=== PATIENT | female | born 1930 | race Caucasian/White ===

== ENCOUNTER 2017-08-31 10:43 | Outpatient (CLI) | payer MEDICARE, BC ==
[~2017-08-31 10:43] MED LIST: ACET-2119 PO; AMIO200T57 PO; APIX2.5T PO; CEPH250T PO; COR3.125T PO; FERR324T PO; FEXO-236 PO; GABA-532 PO; LEVO50TA PO; MULT-955 PO; OMEG300C3 PO; OSC500T PO; PRAV40TA PO; [UNRECOGNIZED DRUG - OTHER] PO
== END 2017-08-31 23:59 | disposition home or self-care (01) ==
LOC: VAS 10:43
PROVIDERS: ATTEND Internal Medicine Cardiovascular Disease
DX: I82.B12 Acute embolism and thrombosis of left subclavian vein (principal); I10 Essential (primary) hypertension; Z95.0 Presence of cardiac pacemaker
CPT/HCPCS: 93971

== ENCOUNTER 2020-03-27 20:53 | Inpatient (IN) | payer MEDICARE, BC ==
[~2020-03-27] VITALS: Ht 160 cm; Wt 47.7 kg
[~2020-03-27 20:53] MED LIST changes: -ACET-2119 PO; -AMIO200T57 PO; +AMIO200T61 PO; +AMO250C PO; -CEPH250T PO; -COR3.125T PO; +FERR236T3 PO; -FERR324T PO; -FEXO-236 PO; -GABA-532 PO; +GABA300C PO; -MULT-955 PO; -OMEG300C3 PO; -OSC500T PO; -PRAV40TA PO; +PRAV40TA3 PO; -[UNRECOGNIZED DRUG - OTHER] PO
[2020-03-27 21:25] LABS: BASOPHILS # (AUTO) 0.1 X10'3 (0-0.2); BASOPHILS % (AUTO) 0.8 % (0-1); EOSINOPHILS % (AUTO) 0.6 % (0-6); HEMATOCRIT 27.3 % (35.0-45.0); HEMOGLOBIN 9.4 g/dl (12.0-16.0); LYMPHOCYTES # (AUTO) 0.5 X10'3 (1.1-4.8); LYMPHOCYTES % (AUTO) 7.9 % (21-51); MEAN CORPUSCULAR HEMOGLOBIN 33.2 PG (27.0-31.0); MEAN CORPUSCULAR HGB CONC 34.4 g/dL (33.0-36.5); MEAN CORPUSCULAR VOLUME 96.7 FL (78-98); MEAN PLATELET VOLUME 7.7 FL (7.4-10.4); MONOCYTES # (AUTO) 1.1 X10'3 (0-0.9); MONOCYTES % (AUTO) 16.8 % (2-12); NEUTROPHILS # (AUTO) 4.7 X10'3 (1.8-7.7); NEUTROPHILS % (AUTO) 73.9 % (42-75); PLATELET COUNT 238 X10'3 (140-440); RED BLOOD COUNT 2.82 X10'6 (4.20-5.60); RED CELL DISTRIBUTION WIDTH 16.6 % (11.5-14.5); WHITE BLOOD COUNT 6.4 X10'3 (4.5-11.0)
[2020-03-27 21:31] LABS: CLARITY,URINE SLIGHTLY CLOUDY (Clear); COLOR,URINE YELLOW (Yellow); GLUCOSE, URINE NEGATIVE (Neg); KETONES,URINE NEGATIVE (Neg); LEUKOCYTE ESTERASE ,URINE TRACE (Neg); NITRITES, URINE NEGATIVE (Neg); OCCULT BLOOD,URINE NEGATIVE (Neg); PH,URINE 7.5 (4.8-8.0); PROTEIN,URINE TRACE mg/dl (Neg)
[2020-03-27 21:32] LABS: UA COLLECTION TYPE CLN CATCH MIDSTREAM
[2020-03-27] MEDS ORDERED: DOCU-148 PO (21:34)
[2020-03-27] MEDS ORDERED: POTA10TA10 PO (21:34)
[2020-03-27] MEDS ORDERED: PANT-47 PO (21:34)
[2020-03-27] MEDS ORDERED: OMEG1CAP13 PO (21:34)
[2020-03-27] MEDS ORDERED: MAGN200T8 PO (21:34)
[2020-03-27] MEDS ORDERED: METO5TAB85 PO (21:34)
[2020-03-27] MEDS ORDERED: ROPI0.252 PO (21:34)
[2020-03-27] MEDS ORDERED: AMLO5TAB4 PO (21:34)
[2020-03-27] MEDS ORDERED: LISI-600 PO (21:34)
[2020-03-27] MEDS ORDERED: ACET-1008 PO (21:34)
[2020-03-27] MEDS ORDERED: FERR324T4 PO (21:34)
[2020-03-27] MEDS ORDERED: PRAV80TA3 PO (21:34)
[2020-03-27] MEDS ORDERED: HYDR-4383 PO (21:34)
[2020-03-27] MEDS ORDERED: SENN-263 PO (21:34)
[2020-03-27] MEDS ORDERED: DEMECLOCYCLINE PO (21:35)
[2020-03-27 21:36] LABS: BACTERIA,URINE 3+ /HPF (Neg); RBC,URINE NONE SEEN /HPF (0-2); SQUAMOUS EPITHELIAL CELL,UR FEW /LPF (FEW); WBC,URINE 0-4 /HPF (0-4)
[2020-03-27 21:41] LABS: ALANINE AMINOTRANSFERASE 96 U/L (12-78); ALBUMIN 2.8 G/DL (3.4-5.0); ALBUMIN/GLOBULIN RATIO 0.9 (1.1-1.5); ALKALINE PHOSPHATASE 105 IU/L (46-116); ANION GAP 4 (8-16); ASPARTATE AMINO TRANSFERASE 152 U/L (10-37); BILIRUBIN,TOTAL 1.1 MG/DL (0.1-1.0); BLOOD UREA NITROGEN 19 MG/DL (7-18); BUN/CREATININE RATIO 31.7 (6.6-38.0); CALCIUM 7.6 MG/DL (8.5-10.1); CHLORIDE 88 MMOL/L (99-107); GLUCOSE 86 MG/DL (70-104); LIPASE 86 U/L (73-393); SODIUM 121 MMOL/L (135-145); TOTAL CARBON DIOXIDE 28.7 MMOL/L (24-32); TOTAL PROTEIN 5.8 G/DL (6.4-8.2); TROPONIN I 0.05 NG/ML (0.0-0.05); eGFR > 90 ML/MIN
[2020-03-27 21:42] LABS: POTASSIUM 2.9 MMOL/L (3.5-5.1)
[2020-03-27] MEDS ORDERED: potassium Cl 10 mEq/100mL bag IV ONE ×2 (21:45→22:35)
[2020-03-27] MEDS ORDERED: ondansetron/PF 4mg/2ml inj IV ONE (22:35)
[2020-03-27] MEDS ORDERED: normal saline 1000ML IV soln IVB ONE (22:35)
[2020-03-27] MEDS ORDERED: potassium CL 10mEq/100ml bag 100 ML IV PRN ×2 (23:15)
[2020-03-27] MEDS ORDERED: magnesium hydroxide 30ml (MOM) UD suspension PO PRN (23:15)
[2020-03-27] MEDS ORDERED: acetaminophen 325mg tablet PO PRN ×2 (23:15→23:20)
[2020-03-27] MEDS ORDERED: potassium Cl 20 mEq SR tablet PO PRN (23:15)
[2020-03-27] MEDS ORDERED: mag hydrox/Alum hydrox/simeth 30ml oral suspension PO PRN (23:15)
[2020-03-27] MEDS ORDERED: ondansetron/PF 4mg/2ml inj IV PRN (23:15)
[2020-03-27] MEDS: potassium Cl 20mEq in NS 1,000 ML IV SCH (23:45)
[2020-03-28 01:10] VITALS: BP 144/63
--- NOTE | 2020-03-28 01:10 | NUR ---
PATIENT ADMITTED TO ROOM 353 FROM ER FOR HYPONATREMIA AND HYPOKALEMIA. PLACED COMFORTABLE IN BED. VITAL SIGNS TAKEN AND RECORDED.
[2020-03-28 06:19] LABS: ALANINE AMINOTRANSFERASE 106 U/L (12-78); ALBUMIN 2.5 G/DL (3.4-5.0); ALBUMIN/GLOBULIN RATIO 0.9 (1.1-1.5); ALKALINE PHOSPHATASE 92 IU/L (46-116); ANION GAP 2 (8-16); ASPARTATE AMINO TRANSFERASE 167 U/L (10-37); BILIRUBIN,TOTAL 0.9 MG/DL (0.1-1.0); BLOOD UREA NITROGEN 22 MG/DL (7-18); CALCIUM 7.5 MG/DL (8.5-10.1); CHLORIDE 92 MMOL/L (99-107); CREATININE 0.55 MG/DL (0.40-0.90); GLUCOSE 84 MG/DL (70-104); POTASSIUM 3.2 MMOL/L (3.5-5.1); SODIUM 125 MMOL/L (135-145); TOTAL CARBON DIOXIDE 30.6 MMOL/L (24-32); TOTAL PROTEIN 5.3 G/DL (6.4-8.2); eGFR > 90 ML/MIN
[2020-03-28 06:20] LABS: BASOPHILS % (AUTO) 0.6 % (0-1); EOSINOPHILS # (AUTO) 0.1 X10'3 (0-0.9); EOSINOPHILS % (AUTO) 0.9 % (0-6); HEMATOCRIT 23.8 % (35.0-45.0); HEMOGLOBIN 8.3 g/dl (12.0-16.0); LYMPHOCYTES # (AUTO) 0.5 X10'3 (1.1-4.8); LYMPHOCYTES % (AUTO) 8.7 % (21-51); MEAN CORPUSCULAR HEMOGLOBIN 33.7 PG (27.0-31.0); MEAN CORPUSCULAR VOLUME 96.3 FL (78-98); MEAN PLATELET VOLUME 7.9 FL (7.4-10.4); MONOCYTES # (AUTO) 0.9 X10'3 (0-0.9); MONOCYTES % (AUTO) 16.1 % (2-12); NEUTROPHILS # (AUTO) 4.2 X10'3 (1.8-7.7); NEUTROPHILS % (AUTO) 73.7 % (42-75); PLATELET COUNT 221 X10'3 (140-440); RED BLOOD COUNT 2.47 X10'6 (4.20-5.60); RED CELL DISTRIBUTION WIDTH 16.3 % (11.5-14.5); WHITE BLOOD COUNT 5.8 X10'3 (4.5-11.0)
--- NOTE | 2020-03-28 06:30 | NUR ---
Patient in room [facility]. I have received report from Humera RUSSELL and had the opportunity to ask questions and assume patient care.
--- NOTE | 2020-03-28 06:33 | NUR ---
Problems reprioritized. Patient report given, questions answered & plan of care reviewed with GOLDY RUSSELL.
--- NOTE | 2020-03-28 06:47 | NUR ---
NEEL Bailey reported patient O2 sat was 84% on room air. Patient is confused but admitted she is short of breath. Oxygen at 2lpm/nc was administered to her, O2 sat 93-94% on 2 lpm/nc.
[2020-03-28 07:00] VITALS: BP 125/59
[2020-03-28 07:12] LABS: TOTAL CELLS COUNTED 100
[2020-03-28 07:13] LABS: ANISOCYTOSIS 1+; BURR CELLS 1+; ELLIPTOCYTES 1+; PLATELET ESTIMATE NORMAL
[2020-03-28] MEDS: K and/or MAG REPLACEMENT MC SCH ×2 (08:00→20:00)
[2020-03-28] MEDS: ROPINIRole 1mg tablet PO SCH ×3 (09:07→20:22)
[2020-03-28] MEDS: apixaban 2.5mg tablet PO SCH ×2 (09:07→20:23)
[2020-03-28] MEDS: levoTHYROXINE 25mcg tablet PO SCH (09:07)
[2020-03-28] MEDS: lisinopril 2.5mg tablet PO SCH (09:08)
[2020-03-28] MEDS: pantoprazole 40mg Tablet.DR PO SCH (09:08)
[2020-03-28] MEDS: potassium Cl 20 mEq SR tablet PO PRN ×2 (09:14→20:22)
[2020-03-28 11:00] VITALS: BP 155/77
--- NOTE | 2020-03-28 14:03 | NUR ---
Patient's peripheral IV on the left AC was found infiltrated, attempted to put a new IV with no success. Michelle RUSSELL paged PICC line nurse for help
--- NOTE | 2020-03-28 15:09 | NUR ---
Noted that pt with a low BMI for geriatric age however current documented weight isn't scaled. Pt with no reliable wt hx however noted that pt documented as 60" in previous visits, current ht documented as 63" likely not correct. Pt documented as A/O x 1 and confused. Pt on a regular diet, pending documentation of PO intake. No edema or wounds. Will continue to follow closely and monitor need for nutrition intervention. Addendum: 03/28/20 at [address] Amended: Links added.
[2020-03-28] MEDS: CefTRIAXone/D5W-Rocephin 1gm 50 ML IV SCH (15:54)
--- NOTE | 2020-03-28 17:59 | NUR ---
PAGER ID: [phone] MESSAGE: Surgical Flr Shaheen RN ext [phone]. RE: Ilana Goodrich. Just FYI patient had low saturation early this am 84%, I gave her O2 at 2lpm//nc and was better after. Her CXR shows pulmonary vascular congestion.
--- NOTE | 2020-03-28 18:54 | NUR ---
Problems reprioritized. Patient report given, questions answered & plan of care reviewed with Humera RUSSELL.
--- NOTE | 2020-03-28 18:55 | NUR ---
Patient in room [facility]. I have received report from GOLDY RUSSELL and had the opportunity to ask questions and assume patient care.
[2020-03-28 20:00] VITALS: BP 146/70
[2020-03-28] MEDS: potassium Cl 20mEq in NS 1,000 ML IV SCH (20:21)
[2020-03-28] MEDS: amLODIPine 5mg tablet PO SCH (20:22)
[2020-03-29] VITALS: BP 138/71
[2020-03-29] MEDS: HYDROcodone/acetaminophen 5mg/325mg tablet PO PRN ×3 (00:11→20:09)
[2020-03-29 05:25] LABS: BASOPHILS % (AUTO) 0.6 % (0-1); EOSINOPHILS # (AUTO) 0.1 X10'3 (0-0.9); EOSINOPHILS % (AUTO) 0.8 % (0-6); HEMOGLOBIN 7.6 g/dl (12.0-16.0); LYMPHOCYTES # (AUTO) 0.7 X10'3 (1.1-4.8); LYMPHOCYTES % (AUTO) 10.7 % (21-51); MEAN CORPUSCULAR HEMOGLOBIN 34.2 PG (27.0-31.0); MEAN CORPUSCULAR HGB CONC 35.2 g/dL (33.0-36.5); MEAN CORPUSCULAR VOLUME 96.9 FL (78-98); MEAN PLATELET VOLUME 7.9 FL (7.4-10.4); MONOCYTES % (AUTO) 15.3 % (2-12); NEUTROPHILS # (AUTO) 4.7 X10'3 (1.8-7.7); NEUTROPHILS % (AUTO) 72.6 % (42-75); PLATELET COUNT 214 X10'3 (140-440); RED BLOOD COUNT 2.24 X10'6 (4.20-5.60); RED CELL DISTRIBUTION WIDTH 16.8 % (11.5-14.5); WHITE BLOOD COUNT 6.5 X10'3 (4.5-11.0)
[2020-03-29 05:33] LABS: ALANINE AMINOTRANSFERASE 127 U/L (12-78); ALBUMIN 2.7 G/DL (3.4-5.0); ALKALINE PHOSPHATASE 89 IU/L (46-116); ANION GAP 4 (8-16); ASPARTATE AMINO TRANSFERASE 189 U/L (10-37); BILIRUBIN,TOTAL 0.8 MG/DL (0.1-1.0); BLOOD UREA NITROGEN 23 MG/DL (7-18); BUN/CREATININE RATIO 33.8 (6.6-38.0); CALCIUM 7.7 MG/DL (8.5-10.1); CHLORIDE 97 MMOL/L (99-107); CREATININE 0.68 MG/DL (0.40-0.90); GLUCOSE 90 MG/DL (70-104); POTASSIUM 3.8 MMOL/L (3.5-5.1); SODIUM 129 MMOL/L (135-145); TOTAL CARBON DIOXIDE 27.7 MMOL/L (24-32); TOTAL PROTEIN 5.4 G/DL (6.4-8.2); eGFR 82 ML/MIN
[2020-03-29 05:58] LABS: HEMATOCRIT 21.7 % (35.0-45.0)
[2020-03-29 06:30] VITALS: BP 126/53
--- NOTE | 2020-03-29 06:30 | NUR ---
Problems reprioritized. Patient report given, questions answered & plan of care reviewed with MSI RUSSELL.
[2020-03-29 06:54] LABS: ANISOCYTOSIS 1+; PLATELET ESTIMATE NORMAL; TOTAL CELLS COUNTED 100
[2020-03-29 06:55] LABS: ACANTHOCYTES FEW; ELLIPTOCYTES FEW; POLYCHROMASIA FEW
--- NOTE | 2020-03-29 07:05 | NUR ---
Patient in room [facility]. I have received report from Rayna Way RN and had the opportunity to ask questions and assume patient care.
[2020-03-29] MEDS: K and/or MAG REPLACEMENT MC SCH ×2 (07:21→18:50)
[2020-03-29] MEDS: CefTRIAXone/D5W-Rocephin 1gm 50 ML IV SCH (08:52)
[2020-03-29] MEDS: ROPINIRole 1mg tablet PO SCH ×3 (08:52→20:08)
[2020-03-29] MEDS: pantoprazole 40mg Tablet.DR PO SCH (08:52)
[2020-03-29] MEDS: lisinopril 2.5mg tablet PO SCH (08:52)
[2020-03-29] MEDS: levoTHYROXINE 25mcg tablet PO SCH (08:52)
[2020-03-29 11:00] VITALS: BP 124/51
[2020-03-29] MEDS: potassium Cl 20mEq in NS 1,000 ML IV SCH (15:25)
--- NOTE | 2020-03-29 16:41 | NUR ---
Malnutrition consult: Unsure if pt with wt loss however with decreased appetite per malnutrition risk screen with RN. Pt seen at bedside endorses a good appetite despite documented 0-25% PO intake x two meals and refusal of three meals on regular diet. Pt confirms current ht is 60" and denies any wt loss. TC to RN at [facility]. Per RN pt with reported wt of 126 lbs on admit 03/15 down to 114 lbs 03/27. This is severe wt loss of 9.5% in 12 days. Per RN pt was refusing to eat d/t being nauseous and constipated. RN reports pt took Zofran however was refusing bowel care. RN reports pt was trialed on multiple different ONS options (Glucerna, Ensure, Mighty shake) however pt refused them all. Pt currently meets criteria for severe malnutrition. Malnutrition education not appropriate at this time given patient's confusion. During RD visit, pt reports she has her dentures in however did not further report difficulty chewing. RN at [facility] did mention that patient was receiving chopped meat during her admission, d/w dietary to send chop meat during admit. Pt declines ONS at this time stating she "hates Ensures" however agrees to cottage cheese with peaches and pears TID, d/w dietary. Pt provided with alternative regular menu and RD contact information. Will continue to follow closely. Recommendations: 1) Continue regular diet 2) Encourage PO intake; Chop meat TID 3) Forest food preferences: cottage cheese with peaches/pears TID 4) Routine bowel care 5) Scaled weights per rx Addendum: 03/29/20 at [address] Amended: Links added.
[2020-03-29] MEDS: meropenem inj 1 GM in normal saline 100ml IV soln 100 ML IV SCH (16:48)
[2020-03-29 18:00] VITALS: BP 126/60
--- NOTE | 2020-03-29 18:10 | NUR ---
Problems reprioritized. Patient report given, questions answered & plan of care reviewed with Rayna Way RN.
--- NOTE | 2020-03-29 18:45 | NUR ---
Patient in room [facility]. I have received report from JOE RUSSELL and had the opportunity to ask questions and assume patient care.
[2020-03-29] MEDS: amLODIPine 5mg tablet PO SCH (20:08)
[2020-03-30] VITALS (9 sets, daily range): BP systolic 108–147; BP diastolic 55–73
[2020-03-30] MEDS: meropenem inj 1 GM in normal saline 100ml IV soln 100 ML IV SCH ×4 (00:42→23:22)
[2020-03-30] MEDS: HYDROcodone/acetaminophen 5mg/325mg tablet PO PRN (03:11)
--- NOTE | 2020-03-30 06:10 | NUR ---
Patient in room [facility]. I have received report from Rayna Way RN and had the opportunity to ask questions and assume patient care.
--- NOTE | 2020-03-30 06:32 | NUR ---
Problems reprioritized. Patient report given, questions answered & plan of care reviewed with JOE RN.
[2020-03-30 07:37] LABS: BASOPHILS % (AUTO) 0.8 % (0-1); EOSINOPHILS # (AUTO) 0.2 X10'3 (0-0.9); EOSINOPHILS % (AUTO) 2.4 % (0-6); HEMOGLOBIN 7.2 g/dl (12.0-16.0); LYMPHOCYTES # (AUTO) 0.5 X10'3 (1.1-4.8); LYMPHOCYTES % (AUTO) 7.4 % (21-51); MEAN CORPUSCULAR HEMOGLOBIN 34.4 PG (27.0-31.0); MEAN CORPUSCULAR HGB CONC 34.5 g/dL (33.0-36.5); MEAN CORPUSCULAR VOLUME 99.8 FL (78-98); MEAN PLATELET VOLUME 9.2 FL (7.4-10.4); MONOCYTES # (AUTO) 0.8 X10'3 (0-0.9); MONOCYTES % (AUTO) 13.3 % (2-12); NEUTROPHILS # (AUTO) 4.7 X10'3 (1.8-7.7); NEUTROPHILS % (AUTO) 76.1 % (42-75); PLATELET COUNT 215 X10'3 (140-440); RED CELL DISTRIBUTION WIDTH 17.5 % (11.5-14.5); WHITE BLOOD COUNT 6.2 X10'3 (4.5-11.0)
[2020-03-30 07:38] LABS: HEMATOCRIT 20.9 % (35.0-45.0)
[2020-03-30 07:48] LABS: ALANINE AMINOTRANSFERASE 132 U/L (12-78); ALBUMIN 2.7 G/DL (3.4-5.0); ALKALINE PHOSPHATASE 84 IU/L (46-116); ANION GAP 3 (8-16); ASPARTATE AMINO TRANSFERASE 174 U/L (10-37); BILIRUBIN,TOTAL 0.7 MG/DL (0.1-1.0); BLOOD UREA NITROGEN 20 MG/DL (7-18); BUN/CREATININE RATIO 29.4 (6.6-38.0); CHLORIDE 102 MMOL/L (99-107); CREATININE 0.68 MG/DL (0.40-0.90); GLUCOSE 93 MG/DL (70-104); POTASSIUM 3.6 MMOL/L (3.5-5.1); SODIUM 134 MMOL/L (135-145); TOTAL CARBON DIOXIDE 28.6 MMOL/L (24-32); TOTAL PROTEIN 5.3 G/DL (6.4-8.2); eGFR 82 ML/MIN
[2020-03-30] MEDS: ROPINIRole 1mg tablet PO SCH ×3 (09:22→20:48)
[2020-03-30] MEDS: levoTHYROXINE 25mcg tablet PO SCH (09:22)
[2020-03-30] MEDS: lisinopril 2.5mg tablet PO SCH (09:22)
[2020-03-30] MEDS: K and/or MAG REPLACEMENT MC SCH ×2 (09:23→18:35)
[2020-03-30] MEDS: pantoprazole 40mg Tablet.DR PO SCH (09:23)
[2020-03-30] MEDS: potassium Cl 20mEq in NS 1,000 ML IV SCH (13:03)
[2020-03-30 17:41] LABS: OCCULT BLOOD STOOL POSITIVE (Neg)
--- NOTE | 2020-03-30 18:10 | NUR ---
Problems reprioritized. Patient report given, questions answered & plan of care reviewed with DREW Ag.
--- NOTE | 2020-03-30 18:38 | NUR ---
Patient in room [facility]. I have received report from DREW Oscar and had the opportunity to ask questions and assume patient care.
[2020-03-30] MEDS: amLODIPine 5mg tablet PO SCH (20:48)
[2020-03-30] MEDS: lactobacillus rhamnosus 10,000 MMU CELLS/CAPSULE PO SCH (20:48)
[2020-03-31 00:12] VITALS: BP 145/67
[2020-03-31 06:07] LABS: BASOPHILS % (AUTO) 0.7 % (0-1); EOSINOPHILS # (AUTO) 0.1 X10'3 (0-0.9); EOSINOPHILS % (AUTO) 1.1 % (0-6); HEMATOCRIT 25.6 % (35.0-45.0); HEMOGLOBIN 8.8 g/dl (12.0-16.0); LYMPHOCYTES # (AUTO) 0.3 X10'3 (1.1-4.8); LYMPHOCYTES % (AUTO) 5.8 % (21-51); MEAN CORPUSCULAR HEMOGLOBIN 33.3 PG (27.0-31.0); MEAN CORPUSCULAR HGB CONC 34.3 g/dL (33.0-36.5); MEAN CORPUSCULAR VOLUME 97.1 FL (78-98); MEAN PLATELET VOLUME 8.3 FL (7.4-10.4); MONOCYTES # (AUTO) 0.8 X10'3 (0-0.9); MONOCYTES % (AUTO) 14.2 % (2-12); NEUTROPHILS # (AUTO) 4.7 X10'3 (1.8-7.7); NEUTROPHILS % (AUTO) 78.2 % (42-75); PLATELET COUNT 199 X10'3 (140-440); RED BLOOD COUNT 2.64 X10'6 (4.20-5.60); RED CELL DISTRIBUTION WIDTH 17.3 % (11.5-14.5); WHITE BLOOD COUNT 5.9 X10'3 (4.5-11.0)
--- NOTE | 2020-03-31 06:20 | NUR ---
Patient in room [facility]. I have received report from DREW Ag and had the opportunity to ask questions and assume patient care.
[2020-03-31 06:30] VITALS: BP 126/61
--- NOTE | 2020-03-31 06:42 | NUR ---
Problems reprioritized. Patient report given, questions answered & plan of care reviewed with DREW Oscar.
[2020-03-31 06:53] LABS: ALANINE AMINOTRANSFERASE 130 U/L (12-78); ALBUMIN 2.7 G/DL (3.4-5.0); ALBUMIN/GLOBULIN RATIO 0.9 (1.1-1.5); ALKALINE PHOSPHATASE 90 IU/L (46-116); ANION GAP 5 (8-16); ASPARTATE AMINO TRANSFERASE 147 U/L (10-37); BILIRUBIN,TOTAL 1.4 MG/DL (0.1-1.0); BLOOD UREA NITROGEN 14 MG/DL (7-18); BUN/CREATININE RATIO 22.2 (6.6-38.0); CALCIUM 8.1 MG/DL (8.5-10.1); CHLORIDE 100 MMOL/L (99-107); CREATININE 0.63 MG/DL (0.40-0.90); GLUCOSE 95 MG/DL (70-104); POTASSIUM 3.2 MMOL/L (3.5-5.1); SODIUM 135 MMOL/L (135-145); TOTAL CARBON DIOXIDE 29.7 MMOL/L (24-32); TOTAL PROTEIN 5.6 G/DL (6.4-8.2); eGFR 89 ML/MIN
--- NOTE | 2020-03-31 07:00 | NUR ---
Pt refused VS, meds & most of the nursing assessment
[2020-03-31] MEDS: K and/or MAG REPLACEMENT MC SCH ×2 (07:22→20:00)
[2020-03-31] MEDS ORDERED: potassium CL 10mEq/100ml bag 100 ML IV PRN (07:35)
[2020-03-31] MEDS ORDERED: magnesium 4gm in 100ml NS 100 ML IV PRN (07:35)
[2020-03-31] MEDS ORDERED: potassium Cl 20 mEq SR tablet PO PRN (07:35)
[2020-03-31] MEDS ORDERED: magnesium Cl slow-release 64mg tablet PO PRN (07:35)
[2020-03-31] MEDS: meropenem inj 1 GM in normal saline 100ml IV soln 100 ML IV SCH ×2 (08:17→16:03)
[2020-03-31] MEDS: pantoprazole 40mg Tablet.DR PO SCH (08:17)
[2020-03-31] MEDS: levoTHYROXINE 25mcg tablet PO SCH (08:17)
[2020-03-31] MEDS: ROPINIRole 1mg tablet PO SCH ×3 (08:17→20:56)
[2020-03-31] MEDS: lactobacillus rhamnosus 10,000 MMU CELLS/CAPSULE PO SCH ×2 (08:17→20:56)
[2020-03-31] MEDS: lisinopril 2.5mg tablet PO SCH (08:18)
[2020-03-31 08:28] LABS: MAGNESIUM 1.8 MG/DL (1.5-2.4)
[2020-03-31 11:00] VITALS: BP 152/68
[2020-03-31] MEDS: potassium Cl 20 mEq SR tablet PO PRN (14:46)
--- NOTE | 2020-03-31 18:40 | NUR ---
Problems reprioritized. Patient report given, questions answered & plan of care reviewed with DREW Lion.
--- NOTE | 2020-03-31 18:40 | NUR ---
Patient in room [facility]. I have received report from Celestina RUSSELL and had the opportunity to ask questions and assume patient care.
[2020-03-31 19:45] VITALS: BP 146/71
[2020-03-31] MEDS: amLODIPine 5mg tablet PO SCH (20:56)
[2020-04-01] VITALS: BP 142/70
[2020-04-01 06:01] LABS: BASOPHILS # (AUTO) 0.1 X10'3 (0-0.2); BASOPHILS % (AUTO) 1.7 % (0-1); EOSINOPHILS # (AUTO) 0.1 X10'3 (0-0.9); EOSINOPHILS % (AUTO) 0.8 % (0-6); HEMATOCRIT 28.3 % (35.0-45.0); HEMOGLOBIN 9.7 g/dl (12.0-16.0); LYMPHOCYTES # (AUTO) 0.6 X10'3 (1.1-4.8); LYMPHOCYTES % (AUTO) 7.4 % (21-51); MEAN CORPUSCULAR HEMOGLOBIN 33.7 PG (27.0-31.0); MEAN CORPUSCULAR HGB CONC 34.3 g/dL (33.0-36.5); MEAN PLATELET VOLUME 8.2 FL (7.4-10.4); MONOCYTES # (AUTO) 1.1 X10'3 (0-0.9); MONOCYTES % (AUTO) 14.2 % (2-12); NEUTROPHILS # (AUTO) 5.8 X10'3 (1.8-7.7); NEUTROPHILS % (AUTO) 75.9 % (42-75); PLATELET COUNT 234 X10'3 (140-440); RED BLOOD COUNT 2.89 X10'6 (4.20-5.60); RED CELL DISTRIBUTION WIDTH 17.7 % (11.5-14.5); WHITE BLOOD COUNT 7.7 X10'3 (4.5-11.0)
[2020-04-01 06:31] LABS: ALANINE AMINOTRANSFERASE 151 U/L (12-78); ALBUMIN/GLOBULIN RATIO 0.9 (1.1-1.5); ALKALINE PHOSPHATASE 100 IU/L (46-116); ANION GAP 9 (8-16); ASPARTATE AMINO TRANSFERASE 173 U/L (10-37); BILIRUBIN,TOTAL 1.6 MG/DL (0.1-1.0); BLOOD UREA NITROGEN 10 MG/DL (7-18); BUN/CREATININE RATIO 14.7 (6.6-38.0); CALCIUM 8.7 MG/DL (8.5-10.1); CHLORIDE 98 MMOL/L (99-107); CREATININE 0.68 MG/DL (0.40-0.90); GLUCOSE 82 MG/DL (70-104); MAGNESIUM 1.7 MG/DL (1.5-2.4); POTASSIUM 3.3 MMOL/L (3.5-5.1); SODIUM 137 MMOL/L (135-145); TOTAL CARBON DIOXIDE 30.3 MMOL/L (24-32); TOTAL PROTEIN 6.4 G/DL (6.4-8.2); eGFR 82 ML/MIN
--- NOTE | 2020-04-01 06:44 | NUR ---
Patient in room [facility]. I have received report from Amisha RUSSELL and had the opportunity to ask questions and assume patient care.
--- NOTE | 2020-04-01 06:48 | NUR ---
Problems reprioritized. Patient report given, questions answered & plan of care reviewed with Shaheen RUSSELL.
[2020-04-01 07:00] VITALS: BP 141/70
--- NOTE | 2020-04-01 07:54 | NUR ---
PAGER ID: [phone] MESSAGE: Surgical Flmaria g Jamison RN ext [phone]. RE: Joleen, Ilana. Patient O2 sat this am was 84% on 2lpm/nc, went down to 78% currently on 4lpm/nc still on low 80's. CXR 03/27 shows pulmo vascular congestion. Left posterior lung has crackles
[2020-04-01] MEDS: K and/or MAG REPLACEMENT MC SCH ×2 (08:00→20:44)
[2020-04-01] MEDS: potassium Cl 20 mEq SR tablet PO PRN ×3 (09:07→20:33)
[2020-04-01] MEDS: meropenem inj 1 GM in normal saline 100ml IV soln 100 ML IV SCH ×5 (09:07→23:53)
[2020-04-01] MEDS: levoTHYROXINE 25mcg tablet PO SCH (09:08)
[2020-04-01] MEDS: ROPINIRole 1mg tablet PO SCH ×3 (09:08→20:33)
[2020-04-01] MEDS: lactobacillus rhamnosus 10,000 MMU CELLS/CAPSULE PO SCH ×2 (09:08→20:33)
[2020-04-01] MEDS: pantoprazole 40mg Tablet.DR PO SCH (09:08)
[2020-04-01] MEDS: lisinopril 2.5mg tablet PO SCH (09:08)
--- NOTE | 2020-04-01 09:15 | NUR ---
Received order from Dr. Nelson to get Chest Xray done
--- NOTE | 2020-04-01 09:43 | NUR ---
Per Nancy from Medical Record department, there was no submitted advance directive or any proof that the granddaughter is the patient's POA for healthcare. Nancy said she will try to call the granddaughter to see if we can obtain copy of POA documentation
--- NOTE | 2020-04-01 09:55 | NUR ---
Patient's granddaughter Kait called, she said she got a missed call from the hospital. I told her it's probably the Medical Record department. I asked her to give us the copy of the POA, she said she has it at home and would have to find it. She asked me if patient will go for EGD, I told her per report I got and the doctor's note -patient not interested in going for EGD.
[2020-04-01] MEDS ORDERED: furosemide 10 MG/1 ML 10ml inj IV ONE (10:55)
[2020-04-01 11:20] VITALS: BP 157/77
--- NOTE | 2020-04-01 11:21 | NUR ---
Dr. Nelson seen and examined patient. Lasix 60mg IV given per order.
--- NOTE | 2020-04-01 15:01 | NUR ---
Reassessment: Pt PO remains poor mostly refusing meals; RN reports few small bites at meals. PARTH d/w RN regarding appetite stimulant if MD agreeable given poor PO hx since pt is accepting PO meds. LBM 03/31. Will continue to monitor. Recommendations: 1) Continue regular diet; Encourage PO intake; Chop meat TID 2) Consider appetite stimulant since accepting PO meds w/ poor PO if MD agreeable 3) [place] food preferences: cottage cheese with peaches/pears TID 4) Routine bowel care 5) Weekly scaled wts Addendum: 04/01/20 at [address] Amended: Links added.
--- NOTE | 2020-04-01 18:15 | NUR ---
Patient in room [facility]. I have received report from Shaheen RUSSELL and had the opportunity to ask questions and assume patient care.
--- NOTE | 2020-04-01 18:20 | NUR ---
Problems reprioritized. Patient report given, questions answered & plan of care reviewed with Amisha RUSSELL.
[2020-04-01 19:43] VITALS: BP 135/64
[2020-04-01] MEDS: amLODIPine 5mg tablet PO SCH (20:33)
[2020-04-01] MEDS: furosemide 40mg/4ml inj IV SCH (20:33)
[2020-04-02] VITALS: BP 140/69
[2020-04-02 05:21] LABS: MAGNESIUM 1.5 MG/DL (1.5-2.4)
--- NOTE | 2020-04-02 06:40 | NUR ---
Patient in room [facility]. I have received report from Moisés Lion and had the opportunity to ask questions and assume patient care.
--- NOTE | 2020-04-02 06:43 | NUR ---
Problems reprioritized. Patient report given, questions answered & plan of care reviewed with Anya RUSSELL.
[2020-04-02 07:25] VITALS: BP 137/64
[2020-04-02] MEDS: K and/or MAG REPLACEMENT MC SCH (08:00)
[2020-04-02] MEDS: meropenem inj 1 GM in normal saline 100ml IV soln 100 ML IV SCH ×2 (08:43→12:51)
[2020-04-02] MEDS: furosemide 40mg/4ml inj IV SCH (08:43)
[2020-04-02] MEDS: ROPINIRole 1mg tablet PO SCH ×2 (08:44→12:51)
[2020-04-02] MEDS: lactobacillus rhamnosus 10,000 MMU CELLS/CAPSULE PO SCH (08:44)
[2020-04-02] MEDS: HYDROcodone/acetaminophen 5mg/325mg tablet PO PRN (08:44)
[2020-04-02] MEDS: pantoprazole 40mg Tablet.DR PO SCH (08:44)
[2020-04-02] MEDS: levoTHYROXINE 25mcg tablet PO SCH (08:44)
[2020-04-02] MEDS: lisinopril 2.5mg tablet PO SCH (08:45)
[2020-04-02 09:03] LABS: POTASSIUM 2.7 MMOL/L (3.5-5.1)
[2020-04-02] MEDS ORDERED: POTASSIUM BICARB 20meq eff tab 20 MEQ TABLET.EFF PO PRN (09:15)
[2020-04-02] MEDS: POTASSIUM BICARB 20meq eff tab 20 MEQ TABLET.EFF PO PRN ×2 (09:32→11:34)
[2020-04-02 11:51] VITALS: BP 92/42
== END 2020-04-02 15:03 | DRG 689 ==
LOC: ER 20:53 → UNDOADMIN 23:13 → ED HOLD 23:13 → SUR 3N 03-28 01:05 → ED HOLD 03-28 01:05
PROVIDERS: ADMIT Internal Medicine; ATTEND Family Medicine
PROC: 30233N1 Transfusion of Nonautologous Red Blood Cells into Peripheral Vein, Percutaneous Approach (ICD-10-PCS; principal; 2020-03-30)
DX: N39.0 Urinary tract infection, site not specified (principal); G93.41 Metabolic encephalopathy; E87.1 Hypo-osmolality and hyponatremia; E44.0 Moderate protein-calorie malnutrition; Z68.1 Body mass index [BMI] 19.9 or less, adult; Z16.24 Resistance to multiple antibiotics; E87.6 Hypokalemia; E03.9 Hypothyroidism, unspecified; E83.51 Hypocalcemia; Z96.652 Presence of left artificial knee joint; B96.20 Unspecified Escherichia coli [E. coli] as the cause of diseases classified elsewhere; I10 Essential (primary) hypertension; Z66 Do not resuscitate; D53.9 Nutritional anemia, unspecified; I25.10 Atherosclerotic heart disease of native coronary artery without angina pectoris; I48.91 Unspecified atrial fibrillation; Z82.41 Family history of sudden cardiac death; Z82.49 Family history of ischemic heart disease and other diseases of the circulatory system; Z82.5 Family history of asthma and other chronic lower respiratory diseases; Z86.73 Personal history of transient ischemic attack (TIA), and cerebral infarction without residual deficits; Z93.3 Colostomy status; Z95.1 Presence of aortocoronary bypass graft; Z88.5 Allergy status to narcotic agent; Z95.0 Presence of cardiac pacemaker; Z79.899 Other long term (current) drug therapy
CPT/HCPCS: 36415; 36430; 71045; 76937; 80053; 81001; 82272; 83690; 83735; 84132; 84443; 84484; 85025; 86885; 86900; 86901; 86920; 87077; 87081; 87088; 87186; 87324; 87449; 93005; 93306; 97110; 97112; 97116; 97161; 97530; 97535; 99285; G0378; J0696; J1940; J2185; J2405; J3480; J7030; P9016